=== PATIENT | female | born 1950 | race Two or more races ===

== ENCOUNTER → 2024-06-26 06:27 | Day surgery (SDC) | payer MEDICARE, OTHER, SELFPAY | LOC: GI 06:27 | PROVIDERS: ATTENDING PHYSICIAN Internal Medicine Gastroenterology | DX: Z12.11 Encounter for screening for malignant neoplasm of colon (principal); D12.2 Benign neoplasm of ascending colon; D12.3 Benign neoplasm of transverse colon; K57.30 Diverticulosis of large intestine without perforation or abscess without bleeding; K64.8 Other hemorrhoids; Q43.8 Other specified congenital malformations of intestine; K44.9 Diaphragmatic hernia without obstruction or gangrene; K31.7 Polyp of stomach and duodenum; R12 Heartburn; Z86.010 Personal history of colon polyps | CPT/HCPCS: 45385; 43239; 88305; 88342 ==